=== PATIENT | female | born 1935 | race Caucasian/White ===

== ENCOUNTER → 2016-05-16 | Outpatient (CLI) | payer MEDICARE ==
[~2016-05-16] MED LIST: ALBUTEROL17 GM NEB; ALPRAZOLAM0.5 MG PO; CARDIZEM PO; CIPRO PO; COREG3.125 MG PO; COUMADIN PO; COUMADIN5 MG PO; CRESTOR PO; FISH OIL300 MG PO; HYDROCODON-ACE1 EAC2 PO; IPRATROPIUM0.2 MG/ML NEB; IRON 100 PLUS1 EAC1 PO; LISINOPRIL10 MG PO; LOPRESSOR PO; LYRICA PO; MUCINEX DM1 TAB.SR . PO; NITROGLYCERIN0.4 MG SL; PERCOCET PO; POTASSIUM CHLO10 ME1 PO; PRAVASTATIN SOD40 MG PO; TOPROL XL PO; TYLOX 5/500 CAP1 CAP PO; VIT D PO; VITAMIN D1000 UNIT PO; VOLTAREN75 MG PO; ZESTORETIC 10-1 EACH; ZOLOFT100 MG PO
--- NOTE | ~2016-05-16 | CT57 ---
[facility] A Service of [facility] & [facility] RADIOLOGY TEXT RESULTS PATIENT: ZAYRA VELAZQUEZ LOCATION: [facility] : 35 UNIT #: [id number] AGE: [address]: CHRISTIANE KOROMA DO SEX: F ORDER DR: [id number] [place] [id number] O MR#: [id number] [facility] #: [id number] NAME: ZAYRA VELAZQUEZ : 1935 SEX: F STUDY DATE/TIME: 05/16/2016 12:00 UNIT: [facility] ROOM: STUDY DESCRIPTION: CT Chest Wo Cont Attending Physician: Christiane Koroma D.O. Referring Physician: Christiane Koroma D.O. Ordering Physician: Christiane Koroma D.O. Primary Care Physician: Christiane Koroma D.O. MEDICAL IMAGING REPORT This report is preliminary unless electronic signature is present. EXAM CT chest without contrast, 05/16/2016 INDICATION Cough and shortness breath. Patient had a routine x-ray on May 02, 2016 which apparently showed a pulmonary nodule. TECHNIQUE Axial CT images were obtained from the thoracic inlet through the dome of the diaphragm. No intravenous contrast was administered. This CT exam was performed with one or more of the following radiation dose reduction techniques: automatic exposure control, adjustment of mA and/or kV according to patient size, and iterative reconstruction. FINDINGS Within the right lower lobe there is an irregularly marginated nodule measuring up to 1.1 cm x 0.8 cm. This was not clearly identified on the prior study from March 2007 and should be viewed with suspicion. The patient is noted to have some stable scarring within the right middle lobe as well as what is probably an additional area of scarring within the right lower lobe, but which was also not clearly identified on the prior study. No additional nodules are seen on the left. The thyroid gland, trachea and esophagus all appear unremarkable. There is no pleural or pericardial effusion. The main pulmonary artery is enlarged which can be seen in the setting of pulmonary arterial hypertension. There is aneurysmal dilatation of the descending thoracic aorta which measures about 3.1 cm proximally and then measures about 3.1 cm distally. The patient has bilateral lipid-gian adrenal adenomas. Postsurgical changes are seen within the stomach. The spleen measures within normal size limits. Gallbladder is surgically absent. This [facility] A Service of [facility] RADIOLOGY TEXT RESULTS PATIENT: ZAYRA VELAZQUEZ LOCATION: [facility] : 35 UNIT #: [id number] AGE: [address]: CHRISTIANE KOROMA DO SEX: F ORDER DR: patient has some low attenuation lesions arising from the right kidney which I suspect are cysts. One arising from the superior pole of the right kidney does appear to be associated with some calcifications. It however, is stable in size when compared to the exam from March 2007 and this is felt to be benign. Review of bony windows does not demonstrate any aggressive osseous abnormalities. There is multilevel discogenic degenerative disease as well as changes of prior posterior spinal fusion. IMPRESSION 1. Within the right lower lobe this patient has a 1.1 cm x 0.8 cm irregularly marginated nodule which was not clearly identified on the prior CT from March 2007. While it still may reflect a benign infectious or inflammatory nodule, its morphology is certainly worrisome. I would suggest further evaluation with PET. The patient also has an area of suspected scarring seen within the right lower lobe which was not clearly identified on the prior study. Attention to that area on the scheduled PET is suggested however, if PET is not pursed, at a minimum I would suggest short-term CT followup in 3 months. 2. Aneurysmal dilatation of the descending thoracic aorta. 3. Bilateral lipid-rich adenomas. 4. Stable probable cyst arising from the superior pole of the right kidney which has been unchanged since March 2007. There is an additional cyst seen within the right kidney which appears larger than on the prior study but certainly is characteristic in appearance of a cyst. Please see the body of the report for any other additional incidental findings. Dictated by... Jayna Sam M.D. THIS IS AN ELECTRONICALLY VERIFIED REPORT Jayna Sam M.D. at 05/17/2016 4:47 PM AFF/ljd TD: 05/16/2016 23:25 JOB #: [id number] MEDICAL IMAGING REPORT
== END | disposition home or self-care (01) ==
LOC: SCT 11:26
DX: R91.1 Solitary pulmonary nodule (principal); I71.2 Thoracic aortic aneurysm, without rupture; D35.02 Benign neoplasm of left adrenal gland; D35.01 Benign neoplasm of right adrenal gland; N28.1 Cyst of kidney, acquired
CPT/HCPCS: 71250

== ENCOUNTER 2016-10-24 19:32 | Emergency (ER) | payer MEDICARE ==
[~2016-10-24] VITALS: Ht 160 cm; Wt 78.0 kg
--- NOTE | ~2016-10-24 | CR173 ---
[facility] A Service of [facility] & [facility] RADIOLOGY TEXT RESULTS PATIENT: ZAYRA VELAZQUEZ LOCATION: SED : 35 UNIT #: [id number] AGE: [address]: Tan Hubbard MD SEX: F ORDER DR: [id number] [place] [id number] E MR#: [id number] Acc #: [id number] NAME: ZAYRA VELAZQUEZ. : 1935 SEX: F STUDY DATE/TIME: 10/24/2016 20:47 UNIT: SED ROOM: STUDY DESCRIPTION: CR Knee 3 Views Rt Attending Physician: Tan Hubbard M.D. Ordering Physician: Tan Hubbard M.D. Primary Care Physician: Ruiz Casillas D.O. MEDICAL IMAGING REPORT This report is preliminary unless electronic signature is present. EXAM Right knee series 10/24/2016. HISTORY Trauma. Short of air, fever, infection right knee 2 weeks duration. Fell. TECHNIQUE AP lateral and sunrise views of the right knee are presented. FINDINGS Status post right knee arthroplasty. The orthopedic hardware is normally located and aligned. No indication of hardware loosening. There is mild narrowing of all 3 joint space compartments. Mild soft tissue swelling versus prominent subcutaneous fat in the infrapatellar/pretibial soft tissues. Correlate with exam. Vascular calcifications. Subcutaneous calcifications. No nonsurgical radiodense foreign body. No subcutaneous air or soft tissue defect. Dictated by... Tan Kelsey M.D. THIS IS AN ELECTRONICALLY VERIFIED REPORT Tan Kelsey M.D. at 10/27/2016 7:36 AM KATT/ashley TD: 10/25/2016 09:56 JOB #: [id number] MEDICAL IMAGING REPORT Page 1 of 1
--- NOTE | ~2016-10-24 | CR151 ---
[facility] A Service of [facility] & [facility] RADIOLOGY TEXT RESULTS PATIENT: ZAYRA VELAZQUEZ LOCATION: SED : 35 UNIT #: [id number] AGE: [address]: Tan Hubbard MD SEX: F ORDER DR: [id number] [place] [id number] E MR#: [id number] Acc #: [id number] NAME: ZAYRA VELAZQUEZ. : 1935 SEX: F STUDY DATE/TIME: 10/24/2016 20:47 UNIT: SED ROOM: STUDY DESCRIPTION: CR Hip Min 2 Views Rt Attending Physician: Tan Hubbard M.D. Ordering Physician: Tan Hubbard M.D. Primary Care Physician: Ruiz Casillas D.O. MEDICAL IMAGING REPORT This report is preliminary unless electronic signature is present. EXAM Right hip series, 10/24/2016 HISTORY Trauma, short of air, fever, infection in knee. Fell. Right hip. FINDINGS AP and frogleg views of the right hip are presented. No traumatic fracture or malalignment. Mild to moderate narrowing of the joint space. Visualized proximal femur intact. Visualized bony ring of pelvis intact. Vascular calcifications. Periarticular soft tissues otherwise unremarkable. Dictated by... Tan Kelsey M.D. THIS IS AN ELECTRONICALLY VERIFIED REPORT Tan Kelsey M.D. at 10/27/2016 7:36 AM KATT/caroline TD: 10/25/2016 10:00 JOB #: [id number] MEDICAL IMAGING REPORT Page 1 of 1
--- NOTE | ~2016-10-24 | US85 ---
[facility]. [facility] A Service of [facility] & [facility] RADIOLOGY TEXT RESULTS PATIENT: ZAYRA VELAZQUEZ LOCATION: SED : 35 UNIT #: [id number] AGE: [address]: Tan Hubbard MD SEX: F ORDER DR: [id number] [place] [id number] E MR#: [id number] Acc #: [id number] NAME: ZAYRA VELAZQUEZ. : 1935 SEX: F STUDY DATE/TIME: 10/24/2016 20:57 UNIT: SED ROOM: STUDY DESCRIPTION: LE Veins Unilat or Ltd Stdy Attending Physician: Tan Hubbard M.D. Ordering Physician: Tan Hubbard M.D. Primary Care Physician: Ruiz Casillas D.O. MEDICAL IMAGING REPORT This report is preliminary unless electronic signature is present. EXAM Lower extremity ultrasound DVT on the right, 10/24/2016. INDICATION Right lower extremity swelling and pain after a fall 2 weeks ago. No prior history of clot. TECHNIQUE Liu-scale color Doppler and spectral analysis of the right lower extremity performed. COMPARISON No comparisons. FINDINGS Examination is negative. There is no DVT in the right lower extremity. IMPRESSION 1. Negative study. No DVT in the right lower extremity. Dictated by... Paul Mclean M.D. THIS IS AN ELECTRONICALLY VERIFIED REPORT Paul Mclean M.D. at 10/25/2016 11:04 PM Christopher TD: 10/25/2016 09:31 JOB #: [id number] MEDICAL IMAGING REPORT Page 1 of 1
--- NOTE | ~2016-10-24 | CT16 ---
[facility] A Service of [facility] & [facility] RADIOLOGY TEXT RESULTS PATIENT: ZAYRA VELAZQUEZ LOCATION: SED : 35 UNIT #: [id number] AGE: [address]: Tan Hubbard MD SEX: F ORDER DR: [id number] [address] [address] [id number] E MR#: [id number] [facility] #: [id number] NAME: ZAYRA VELAZQUEZ. : 1935 SEX: F STUDY DATE/TIME: 10/24/2016 21:34 UNIT: SED ROOM: STUDY DESCRIPTION: CT Angio Chest for PE Attending Physician: Tan Hubbard M.D. Ordering Physician: Tan Hubbard M.D. Primary Care Physician: Ruiz Casillas D.O. MEDICAL IMAGING REPORT This report is preliminary unless electronic signature is present. EXAM CT angiography chest for PE. HISTORY Shortness of breath, fever for 2 weeks. Fell [address] pulmonary angiography performed with administration of 100 mL Isovue-370. Three-dimensional reconstructions performed through pulmonary arteries. This CT exam was performed with one or more of the following radiation dose reduction techniques: automatic exposure control, adjustment of mA and/or kV according to patient size, and iterative reconstruction. COMPARISON Comparison to noncontrast enhanced examination 05/16/2016. FINDINGS Visualized thyroid unremarkable. [id number]-[id number] right shoulder joint effusion, slightly more pronounced than on prior examination. Moderate left shoulder joint effusion, stable. Degenerative changes in the joints. Calcifications within the joint spaces. Degenerative changes at the bilateral acromioclavicular joints. Stable appearance. No axillary, mediastinal, or hilar adenopathy. Status post median sternotomy and CABG. Mild cardiac enlargement. No pleural effusions. Chronic elevation left hemidiaphragm, stable. Visualized portions of liver unremarkable. Status post cholecystectomy. No indication of biliary obstruction. Spleen mildly enlarged at about 13 cm. Similar appearance on prior study. Pancreas unremarkable. Bilateral adrenal adenomas, stable. The patient has extensive renovascular calcifications bilaterally. No definite renal calculi are seen. There are bilateral renal cysts. A right upper pole renal cyst is mildly complicated with some mural coarse calcification. No STS. [facility] A Service of [facility] & [facility] RADIOLOGY TEXT RESULTS PATIENT: ZAYRA VELAZQUEZ LOCATION: SED : 35 UNIT #: [id number] AGE: [address]: Tan Hubbard MD SEX: F ORDER DR: change from prior study. No upper abdominal adenopathy. Esophagus unremarkable. Prior gastric bypass. Visualized small bowel and colon notable for transverse colon diverticulosis. Emphysema. Mild bronchial wall thickening in the lower lung zones favored to reflect chronic bronchitis. Dependent atelectasis. Left lung shows no acute infectious or inflammatory disease and no suspicious nodule. Right lung shows some scarring and mild bronchiectatic change in the medial right middle lobe, stable. Previously described spiculated 1 cm x 8 mm nodule in the right lower lobe, significantly decreased in prominence, now measuring 8 mm x 5 mm. Given decreased size over time, benign infectious or inflammatory etiology favored. 5-6 mm noncalcified nodule at the right lung base more posteriorly and inferiorly, not significantly changed. 2-3 mm nodule lateral right lower lobe unchanged. The pulmonary arteries are well opacified. No PE. Atherosclerotic arterial calcifications. No aortic dissection. The descending thoracic aorta is tortuous with mild dilatation measuring about 3.1-3.2 cm in diameter. No change when measurements are made in similar outer wall to outer wall manner. The great vessels appear patent in their proximal extent. Celiac axis patent with nbxp-hj-[id number] narrowing at its origin. Superior mesenteric artery is patent with mild ostial disease. The visualized renal arteries are patent. There are what appear to be at least 2 renal arteries bilaterally. The bony structures show evidence of posterior fusion lower thoracic to at least mid lumbar spine. The visualized orthopedic hardware is intact. Multilevel degenerative changes in the spine without acute appearing bony abnormality. IMPRESSION 1. No PE. 2. Mild aneurysmal dilatation of tortuous descending thoracic aorta measuring approximately 3.2 cm in diameter. No change from April 2016 when similar measuring techniques are utilized. Extensive atherosclerotic disease in coronary and systemic circulation with evidence of prior median sternotomy and CABG. 3. Evidence of COPD. Underlying emphysema. Mild bronchial wall thickening consistent with chronic bronchitis. There is no compelling evidence of acute infectious or inflammatory disease in the lungs. 4. Previously seen spiculated 1 cm x 8 mm nodule right lower lobe significantly decreased in size now measuring 5 mm x 8 mm. Decrease in size favors benign infectious or inflammatory etiology. 2-3 mm right lower lobe pulmonary nodule and 5-6 mm right lower lobe pulmonary nodule also unchanged from April, favored to be benign. Continued 6 to 12-month CT followup strongly recommended. 5. Stable linear scarring and minimal bronchiectasis medial segment right middle lobe. 6. Marked degenerative changes in the bilateral shoulders with bilateral moderate to large joint effusions. See discussion above. Similar appearance on prior study. 7. Degenerative changes in the spine. Thoracolumbar spinal fixation STS. [place] A Service of [facility] & [facility] RADIOLOGY TEXT RESULTS PATIENT: ZAYRA VELAZQUEZ LOCATION: [facility] : 35 UNIT #: [id number] AGE: [address]: Tan Hubbard MD SEX: F ORDER DR: hardware unchanged in visualized extent. 8. Stable adrenal adenomata. Stable renal cysts. Stable postoperative findings of cholecystectomy. Stable borderline splenic enlargement. Dictated by... Tan Kelsey M.D. THIS IS AN ELECTRONICALLY VERIFIED REPORT Tan Kelsey M.D. at 10/27/2016 7:36 AM KATT/amarilis TD: 10/25/2016 09:45 JOB #: [id number] MEDICAL IMAGING REPORT Page 1 of 1
[~2016-10-24 19:32] MED LIST changes: -COREG3.125 MG PO; -CRESTOR PO; -FISH OIL300 MG PO; -IRON 100 PLUS1 EAC1 PO; -LISINOPRIL10 MG PO; -POTASSIUM CHLO10 ME1 PO; -VITAMIN D1000 UNIT PO; -ZOLOFT100 MG PO
[2016-10-24] MEDS ORDERED: COREG3.125 MG PO (19:50)
[2016-10-24] MEDS ORDERED: LISINOPRIL10 MG PO (19:50)
[2016-10-24] MEDS ORDERED: FISH OIL300 MG PO (19:51)
[2016-10-24] MEDS ORDERED: IRON 100 PLUS1 EAC1 PO (19:51)
[2016-10-24] MEDS ORDERED: POTASSIUM CHLO10 ME1 PO (19:51)
[2016-10-24] MEDS ORDERED: ZOLOFT100 MG PO (19:51)
[2016-10-24] MEDS ORDERED: CRESTOR PO (19:51)
[2016-10-24] MEDS ORDERED: VITAMIN D1000 UNIT PO (19:52)
[2016-10-24 20:34] LABS: BASOPHIL% 0.5 % (0-2.5); EOSINOPHIL# 0.3 X10e3 (0-0.7); HEMATOCRIT 38.1 % (35.0-45.0); HEMOGLOBIN 12.5 gm/dL (12.0-16.0); LYMPHOCYTE# 1.4 X10e3 (1.0-3.5); LYMPHOCYTE% 20.9 % (17.0-45.0); MEAN CELL VOLUME 85.2 FL (83-96); MEAN CORPUSCULAR HEMOGLOBIN 27.9 PG (28-34); MEAN CORPUSCULAR HGB CONC 32.8 g/dL (30-36); MEAN PLATELET VOLUME 9.4 FL (6.5-11.5); MONOCYTE# 0.6 X10e3 (0-1.0); MONOCYTE% 8.7 % (3.0-12.0); NEUTROPHIL# 4.3 X10e3 (1.5-7.1); NEUTROPHIL% 65.9 % (40-75); PLATELET COUNT 149 X10e3 (140-420); RED BLOOD COUNT 4.47 X10e (3.90-5.30); RED CELL DISTRIBUTION WIDTH 15.6 % (11.0-15.5); WHITE BLOOD COUNT 6.5 X10e3 (4.0-10.5)
[2016-10-24 20:38] LABS: DIFF IND NO
[2016-10-24 20:51] LABS: BILIRUBIN,TOTAL 0.6 mg/dL (0.2-2.0); BUN/CREATININE RATIO 25.55; CREATININE SERUM 0.9 mg/dL (0.6-1.4); POTASSIUM 4.1 mmol/L (3.5-5.1); PROTEIN TOTAL SERUM 6.5 g/dL (6.0-8.3)
[2016-10-24 21:59] LABS: URINE APPEARANCE CLEAR; URINE BILIRUBIN NEG (NEG); URINE BLOOD NEG (NEG); URINE COLOR YELLOW; URINE GLUCOSE NEG (NORM); URINE KETONE NEG (NEG); URINE LEUKOCYTE ESTERASE NEG (NEG); URINE NITRATE NEG (NEG); URINE PROTEIN NEG (NEG); URINE UROBILINOGEN 0.2 MG/DL (NORM)
[2016-10-24 22:01] LABS: MICRO INDICATED? NO; URINE SOURCE CATH
== END 2016-10-25 00:09 | disposition home or self-care (01) ==
LOC: SED 19:32
PROVIDERS: Emergency Medicine
DX: L02.415 Cutaneous abscess of right lower limb (principal); M79.604 Pain in right leg; R07.9 Chest pain, unspecified; E78.5 Hyperlipidemia, unspecified; Z90.49 Acquired absence of other specified parts of digestive tract; F17.200 Nicotine dependence, unspecified, uncomplicated; Z95.1 Presence of aortocoronary bypass graft; Z88.5 Allergy status to narcotic agent; Z88.8 Allergy status to other drugs, medicaments and biological substances
CPT/HCPCS: 10060; 29530; 36415; 51702; 71275; 73502; 73562; 80053; 81003; 83605; 85025; 85379; 87040; 87070; 87205; 93971; 99284; Q9967